=== PATIENT | male | born 1970 | race Hispanic/Latino ===

== ENCOUNTER 2017-04-15 16:42 | Inpatient (IN) | payer SELFPAY ==
--- NOTE | 2017-04-15 16:52 | C.PDOC ---
History Of Present Illness 46-year-old male, PMHx includes Anxiety, Depression, Mitral Valve Prolapse ( regurgitation takes Metoprolol daily), Post Traumatic Stress Disorder, is transferred from [facility] to the emergency department for psych admission. Patient is depressed and suicidal with Hx of alcohol abuse. Asymptomatic at this time. Denies any other complaints. Time Seen by Provider: 04/15/17 16:51 Chief Complaint (Nursing): Psychiatric Evaluation History Per: Patient, EMS History/Exam Limitations: no limitations Onset/Duration Of Symptoms: Days Current Symptoms Are (Timing): Still Present Past Medical History Reviewed: Historical Data, Nursing Documentation, Vital Signs Vital Signs: Last Vital Signs Temp 98 F 04/15/17 17:02 Pulse 80 04/15/17 17:02 Resp 20 04/15/17 17:02 BP 128/80 04/15/17 17:02 Pulse Ox 98 04/15/17 17:02 Family History: States: No Known Family Hx Review Of Systems Except As Marked, All Systems Reviewed And Found Negative. Constitutional: Negative for: Fever Psych: Positive for: Depression, Suicidal ideation Physical Exam - Physical Exam Appears: Non-toxic, No Acute Distress, Other (Flat affect. No signs or sx of acute intox) Skin: Warm, Dry, No Rash Head: Atraumatic Eye(s): bilateral: Normal Inspection Neck: Normal ROM Respiratory: No Accessory Muscle Use Extremity: Normal ROM Neurological/Psych: Oriented x3 Disposition Counseled Patient/Family Regarding: Diagnosis - Disposition Disposition: HOSPITALIZED Disposition Time: 16:51 Condition: STABLE - POA Present On Arrival: None - Clinical Impression Clinical Impression: Depression, Alcohol abuse - Scribe Statement The provider has reviewed the documentation as recorded by the Scribe (Hudson Sierra) All medical record entries made by the Scribe were at my direction and personally dictated by me. I have reviewed the chart and agree that the record accurately reflects my personal performance of the history, physical exam, medical decision making, and the department course for this patient. I have also personally directed, reviewed, and agree with the discharge instructions and disposition. Decision To Admit - Pt Status Changed To: Hospital Disposition Of: Inpatient - Admit Certification Admit to Inpatient:: After my assessment, the patient will require hospitalization for at least two midnights. This is because of the severity of symptoms shown, intensity of services needed, and/or the medical risk in this patient being treated as an outpatient. - InPatient: Physician Admission Certification: I certify that this patient requires 2 or more midnights of care for the following reason:: see note - . Bed Request Type: Psychiatry Admitting Physician: Lisa Mccabe Patient Diagnosis: Depression, Alcohol abuse
[2017-04-15 18:24] VITALS: O2SAT 100
--- NOTE | 2017-04-15 21:23 | PCM.BM ---
<Kennteh Buitrago - Last Filed: 04/15/17 21:20> Treatment Plan Problems - Problems identified on initial assessmt Depression Date Initiated: 04/15/17 Time Initiated: 18:15 Assessment reference: NA Status: Active Alcohol Abuse Date Initiated: 04/15/17 Time Initiated: 18:15 Assessment reference: NA Status: Active Treatment assets and liabiliti Patient Assests: adapts well, cooperative, ADL independent, negotiates basic needs Patient Liabilities: live alone, poor support system, substance abuse (Alcohol) - Milieu Protocol Maintain good personal hygiene: daily Encourage regular showers, daily Remind patient to perform daily oral care Maintain personal safety: every shift Educate patient to report safety concerns to staff, every shift Monitor environment for contraband/sharps Medication safety: Monitor for expected outcome, potential side effects: every shift, Assess barriers to learning: every shift, Assess readiness for medication education: every shift <Lisa Mccabe - Last Filed: 04/16/17 10:49> - Diagnosis (1) Alcohol abuse Status: Acute Interventions: 04/16/17 10:50 * Assess 7x/week regarding severity of withdrawal * Educate regarding risks, benefits, side effects and alternatives of medications * Use Motivational Interviewing for abstinence * Use CBT for relapse prevention * Medication management for withdrawal symptoms * Encourage medication assisted treatment * (2) Depression Status: Acute Interventions: 04/16/17 10:51 * Assess/adjust medications daily and /or as needed * See patient on an individual basis 7x/week to assess symptoms of depression * Monitor for side effects & effectiveness of medications * <Christel Boyd - Last Filed: 04/16/17 11:02> Family Contact Family involvement: Patient does not wish Family/SO involvement - Goals for Treatment Patient goals for treatment: "I Need an outpatient program." Patient's family/SO goals for treatment: N/A Discharge/Continuing Care - Education Needs Education Needs: Patient Medication, Patient Coping Skills - Discharge Discharge Criteria: Tolerates medication w/o severe side effects, Free of Suicidal thoughts, No longer exhibiting s/s of withdrawal Discharge to:: Home - Treatment Team Participation Patient/Family/SO Statement: 04/16/17 11:01 none Discussed with Family/SO: No Was Patient/Family/SO present at Treatment Team Meeting: Yes
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
[2017-04-18 08:36] VITALS: RESP 19
--- NOTE | 2017-04-18 13:40 | PCM.PYCHPN ---
Psychiatric Progress Note - Psychiatric Progress Note Patient seen today, length of contact: 16 min Patient Chief Complaint: "doing better" Problems Identified/Issues Discussed: Patient is seen, evaluated, and case discussed with staff. Patient states that he is feeling better today. He reports that his anxiety has improved, and he is more calm today. Patient still complaints of back pain. He denies any other symptoms. Patient denies any suicidal ideations. Patient is compliant with all medications, and denies any side effects. Symptoms are improving, but needs more time to stabilize. Support and psychoeducation given. Medication Change: Yes Medical Record Reviewed: Yes Mental Status Examination - Cognitive Function Orientation: Person, Place, Situation, Time Memory: Intact Attention: WNL Concentration: WNL Association: Loose Fund of Knowledge: Poor - Mood Mood: Anxious - Affect Affect: Constricted, Depressed - Speech Speech: Appropriate - Formal Thought Process Formal Thought Process: No Impairment - Suicidal Ideation Suicidal Ideation: No - Homicidal Ideation Homicidal Ideation: No Goal/Treatment Plan - Goal/Treatment Plan Need for Continued Stay: Discharge may exacerbated symptoms Progress Toward Problem(s) and Goals/Treatment Plan: Alcohol use disorder As needed meds and vitamins [place] for abstinence and CBT for relapse prevention Support and psychoeducation Refer to aftercare Generalized anxiety disorder / depression Individual tx with CBT and support Attend groups Pt states he will attend [facility] in [place], [place], as well as AA meetings. Estimated Date of D/C: 04/19/17
[2017-04-19 07:37] VITALS: BP 118/70; PULSE 87; TEMP 97.7
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
== END 2017-04-19 11:15 | disposition home or self-care (01) | DRG 881 ==
LOC: C.ER 16:42 → C.9E 16:52 → C.5E 17:56
PROVIDERS: ADMIT Psychiatry & Neurology Psychiatry; ATTEND Psychiatry & Neurology Psychiatry
PROC: GZ3ZZZZ Medication Management (ICD-10-PCS; principal; 2017-04-15)
PROC: HZ89ZZZ Medication Management for Substance Abuse Treatment, Other Replacement Medication (ICD-10-PCS; 2017-04-15)
PROC: GZHZZZZ Group Psychotherapy (ICD-10-PCS; 2017-04-15)
PROC: GZ56ZZZ Individual Psychotherapy, Supportive (ICD-10-PCS; 2017-04-15)
PROC: HZ59ZZZ Individual Psychotherapy for Substance Abuse Treatment, Supportive (ICD-10-PCS; 2017-04-15)
DX: F32.9 Major depressive disorder, single episode, unspecified (principal); F10.20 Alcohol dependence, uncomplicated; R45.851 Suicidal ideations; F41.1 Generalized anxiety disorder; F43.10 Post-traumatic stress disorder, unspecified; F12.90 Cannabis use, unspecified, uncomplicated; I34.1 Nonrheumatic mitral (valve) prolapse; Z91.5 Personal history of self-harm